=== PATIENT | male | born 1955 | race Caucasian/White ===

== ENCOUNTER 2017-12-14 17:40 | Emergency (ER) | payer MEDICARE, OTHER ==
[2017-12-14] MEDS: NS 1,000 ML IV (17:55)
[2017-12-14] MEDS: ASPIRIN 81 MG CHEW TABLET PO (18:00)
[2017-12-14] MEDS: GI COCKTAIL 50ML BTL(HYOSCYAMINE/MAALOX/LIDOCAINE VISCOUS)(1:3:1) PO (18:33)
[2017-12-14 18:50] LABS: BASO % 0.1 % (0.0-1.0); EOS % 0.5 % (0.0-3.0); IMMATURE GRANULOCYTE % 0.2 % (0-3.0); LYMPH % 11.8 % (24.0-44.0); MEAN CORPUSCULAR HEMOGLOBIN 30.4 pg (27.0-33.0); MEAN CORPUSCULAR HGB CONC 32.6 g/dl (32.0-36.5); MEAN CORPUSCULAR VOLUME 93.5 fl (80.0-96.0); MONO # 0.7 10^3/uL (0.0-0.8); MONO % 8.9 % (0.0-5.0); NEUTROPHILS # 6.4 10^3/uL (1.8-7.7); NEUTROPHILS % 78.5 % (36.0-66.0); PLATELET COUNT, AUTOMATED 184 10^3/uL (150-450); RED CELL DISTRIBUTION WIDTH 13.2 % (11.5-14.5); WHITE BLOOD COUNT 8.2 10^3/uL (4.0-10.0)
[2017-12-14 19:03] LABS: INR 0.99; PROTHROMBIN TIME 13.2 SECONDS (12.1-14.4)
[2017-12-14 19:19] LABS: ALBUMIN 3.8 GM/DL (3.2-5.2); ALBUMIN/GLOBULIN RATIO 1.15 (1.00-1.93); ALKALINE PHOSPHATASE 76 U/L (45-117); ALT/SGPT 20 U/L (12-78); ANION GAP 7 MEQ/L (8-16); AST/SGOT 22 U/L (7-37); BILIRUBIN,DIRECT 0.1 MG/DL (0.0-0.2); BILIRUBIN,TOTAL 0.5 MG/DL (0.2-1.0); BLOOD UREA NITROGEN 16 MG/DL (7-18); CALCIUM LEVEL 8.5 MG/DL (8.8-10.2); CARBON DIOXIDE LEVEL 29 MEQ/L (21-32); CHLORIDE LEVEL 105 MEQ/L (98-107); CK-MB VALUE MASS 2.4 NG/ML (<3.6); CPK CREATINE PHOSPHOKINASE 271 U/L (39-308); CREATININE FOR GFR 1.06 MG/DL (0.70-1.30); GLOMERULAR FILTRATION RATE > 60.0 (>49); GLUCOSE, FASTING 91 MG/DL (70-100); LIPASE 105 U/L (73-393); MB/CK RELATIVE INDEX 0.88 (< OR =4); NT-PRO BNP 209 PG/ML (<125); POTASSIUM SERUM 4.3 MEQ/L (3.5-5.1); SODIUM LEVEL 141 MEQ/L (136-145); TOTAL PROTEIN 7.1 GM/DL (6.4-8.2); TROPONIN I < 0.02 NG/ML (< 0.10)
[2017-12-14 23:37] LABS: CK-MB VALUE MASS 2.2 NG/ML (<3.6); CPK CREATINE PHOSPHOKINASE 231 U/L (39-308); MB/CK RELATIVE INDEX 0.95 (< OR =4); TROPONIN I < 0.02 NG/ML (< 0.10)
== END 2017-12-15 00:07 | disposition home or self-care (01) ==
LOC: M ED 12-15 00:07
DX: R07.89 Other chest pain (principal); R00.1 Bradycardia, unspecified; E78.5 Hyperlipidemia, unspecified; N18.9 Chronic kidney disease, unspecified; R06.02 Shortness of breath; Z87.891 Personal history of nicotine dependence; Z82.49 Family history of ischemic heart disease and other diseases of the circulatory system; Z79.899 Other long term (current) drug therapy; Z88.6 Allergy status to analgesic agent; Z88.8 Allergy status to other drugs, medicaments and biological substances
CPT/HCPCS: 71046

== ENCOUNTER 2018-02-25 11:23 | Emergency (ER) | payer MEDICARE ==
[2018-02-25] MEDS: NS 1,000 ML IV (12:50)
[2018-02-25] MEDS: MORPHINE 4 MG/ML 1ML VIAL/SYRINGE (J2270) IV ×2 (12:51→13:43)
[2018-02-25 12:52] LABS: BASO % 0.2 % (0.0-1.0); EOS % 0.1 % (0.0-3.0); HEMATOCRIT 40.9 % (42.0-52.0); HEMOGLOBIN 13.1 g/dl (13.5-17.5); IMMATURE GRANULOCYTE % 0.7 % (0-3.0); LYMPH # 0.6 10^3/uL (1.5-4.5); LYMPH % 4.3 % (24.0-44.0); MEAN CORPUSCULAR HEMOGLOBIN 29.6 pg (27.0-33.0); MEAN CORPUSCULAR VOLUME 92.3 fl (80.0-96.0); MONO # 0.7 10^3/uL (0.0-0.8); MONO % 5.4 % (0.0-5.0); NEUTROPHILS # 12.2 10^3/uL (1.8-7.7); NEUTROPHILS % 89.3 % (36.0-66.0); PLATELET COUNT, AUTOMATED 432 10^3/uL (150-450); RED BLOOD COUNT 4.43 10^6/uL (4.30-6.10); RED CELL DISTRIBUTION WIDTH 13.3 % (11.5-14.5); WHITE BLOOD COUNT 13.6 10^3/uL (4.0-10.0)
[2018-02-25] MEDS: ONDANSETRON 4MG/2ML VIAL (J2405) IV ×2 (12:52→15:02)
[2018-02-25 13:22] LABS: ALBUMIN 3.8 GM/DL (3.2-5.2); ALBUMIN/GLOBULIN RATIO 1.19 (1.00-1.93); ALKALINE PHOSPHATASE 117 U/L (45-117); ALT/SGPT 44 U/L (12-78); ANION GAP 8 MEQ/L (8-16); AST/SGOT 36 U/L (7-37); BILIRUBIN,DIRECT 0.1 MG/DL (0.0-0.2); BILIRUBIN,TOTAL 0.5 MG/DL (0.2-1.0); BLOOD UREA NITROGEN 13 MG/DL (7-18); CALCIUM LEVEL 9.4 MG/DL (8.8-10.2); CARBON DIOXIDE LEVEL 28 MEQ/L (21-32); CHLORIDE LEVEL 103 MEQ/L (98-107); CREATININE FOR GFR 0.89 MG/DL (0.70-1.30); GLOMERULAR FILTRATION RATE > 60.0 (>49); GLUCOSE, FASTING 140 MG/DL (70-100); LIPASE 80 U/L (73-393); POTASSIUM SERUM 4.1 MEQ/L (3.5-5.1); SODIUM LEVEL 139 MEQ/L (136-145)
[2018-02-25 14:06] LABS: KETONE, URINE AUTO RFX NEGATIVE (NEGATIVE); LEUKOCYTE ESTERASE UR AUTO RFX NEGATIVE (NEGATIVE); MUCUS, URINE RFX SMALL (NEGATIVE); NITRITE, URINE AUTO RFX NEGATIVE (NEGATIVE); RBC, URINE AUTO RFX 12 /HPF (0-3); SPECIFIC GRAVITY UR AUTO RFX 1.017 (1.002-1.035); SQUAM EPITHELIAL CELL UR AURFX 0 /HPF (0-6); WBC, URINE AUTO RFX 2 /HPF (0-3)
[2018-02-25] MEDS: GASTROGRAFIN SOLUTION 30ML PO ×2 (14:07→14:56)
[2018-02-25 14:13] LABS: INR 1.02; PROTHROMBIN TIME 13.5 SECONDS (12.1-14.4)
[2018-02-25 14:14] LABS: PARTIAL THROMBOPLASTIN TIME 25.8 SECONDS (25.4-37.6)
[2018-02-25] MEDS ORDERED: ISOVUE-370 76% 100ML VIAL (Q9967) As Ordered (15:01)
[2018-02-25] MEDS ORDERED: MORPHINE 10 MG/ML 1ML VIAL (J2270) IM (16:15)
[2018-02-25] MEDS: HYDROMORPHONE HCL 0.5 MG/ 0.5 ML SYRINGE (J1170 PER 1) IV (16:30)
[2018-02-25] MEDS: cefTRIAXone SOD 1 GM in D5W MINI-BAG PLUS 50 ML IV (16:58)
== END 2018-02-25 18:24 | disposition short-term general hospital (02) ==
LOC: M ED 11:23
DX: R10.9 Unspecified abdominal pain (principal); K83.8 Other specified diseases of biliary tract; Z98.890 Other specified postprocedural states; M54.5 Low back pain; N40.0 Benign prostatic hyperplasia without lower urinary tract symptoms; K21.9 Gastro-esophageal reflux disease without esophagitis; Z87.19 Personal history of other diseases of the digestive system; E78.5 Hyperlipidemia, unspecified; Z87.891 Personal history of nicotine dependence; Z88.8 Allergy status to other drugs, medicaments and biological substances; Z88.6 Allergy status to analgesic agent; Z90.49 Acquired absence of other specified parts of digestive tract; Z79.899 Other long term (current) drug therapy
CPT/HCPCS: J2270

== ENCOUNTER 2019-08-20 17:07 | Inpatient (IN) | payer MEDICARE ==
[~2019-08-20] VITALS: Ht 172.7 cm; Wt 81.8 kg
[~2019-08-20 17:07] MED LIST: ATEN25TA OR; ESCI10TA2 PO; FLOM0.4C39 PO; NEXI1CAP3 OR; PANT40TA3 PO; REQU1TAB16 OR; RYZOLT PO; SIMV20TA2 OR; SIMV20TA22 PO; VICODINES TAB PO; VITA100054 PO; ZANA4CAP OR
--- NOTE | 2019-08-20 19:13 | IPNPDOC ---
Text Note Date of Service The patient was seen on 08/20/19. NOTE Time of Service 735pm Mr. Ayala is a 64-year-old with a history of depression, nephrolithiasis, diverticulitis /diverticulosis, cholecystectomy and bile duct resection who is admitted for evaluation of nausea, vomiting and abdominal pain. Per discussion with BRICE Liu. He was seen by Dr. Chan who felt that the patient doesn't need surgery but will continue to follow the patient. 1. Nausea vomiting and abdominal pain of unclear cause - admit to medical floor/general surgery consult/Zofran when necessary / advance to clear liquid diet 2. Hypokalemia, likely due to vomiting - replete potassium and follow-up magnesium Rest per 's H&P VS,Federicoe, I+O VS, Sunil, I+O Vital Signs Date Time Temp Pulse Resp B/P (MAP) Pulse Ox O2 Delivery O2 Flow Rate FiO2 08/20/19 17:22 97.9 90 18 114/87 (96) 93 Room Air JULIAN STREETER MD August 20, 2019 19:13
[2019-08-20] MEDS ORDERED: VITAD1000T PO (19:30)
[2019-08-20] MEDS ORDERED: OXYC20TA2 PO (19:30)
[2019-08-20] MEDS ORDERED: MORPHINE 2 MG/ML 1ML VIAL (J2270) IV PRN (19:30)
[2019-08-20] MEDS ORDERED: PANTOPRAZOLE 40MG VIAL (C9113 PER 1) IV SCH (19:30)
[2019-08-20] MEDS ORDERED: ACETAMINOPHEN TAB 650MG DOSE (2X325MG) PO PRN (19:30)
[2019-08-20] MEDS ORDERED: BUSP1TAB PO (19:30)
[2019-08-20 20:00] LABS: BASO % 0.1 % (0.0-1.0); EOS % 0.1 % (0.0-3.0); HEMATOCRIT 44.9 % (42.0-52.0); HEMOGLOBIN 14.8 g/dl (13.5-17.5); LYMPH # 0.8 10^3/uL (1.5-5.0); LYMPH % 10.3 % (24.0-44.0); MEAN CORPUSCULAR VOLUME 90.9 fl (80.0-96.0); MONO # 0.5 10^3/uL (0.0-0.8); MONO % 6.6 % (0.0-5.0); NEUTROPHILS # 6.6 10^3/uL (1.5-8.5); NEUTROPHILS % 82.5 % (36.0-66.0); PLATELET COUNT, AUTOMATED 213 10^3/uL (150-450); RED BLOOD COUNT 4.94 10^6/uL (4.30-6.10)
[2019-08-20] MEDS ORDERED: ONDANSETRON 4MG/2ML VIAL IV PRN (20:00)
[2019-08-20 20:14] LABS: INR 1.07; PROTHROMBIN TIME 13.6 SECONDS (11.8-14.0)
--- NOTE | 2019-08-20 20:16 | REP ---
Clinical: Abdominal pain. Possible small bowel obstruction. Technique: Two supine views of the abdomen and pelvis. Findings: Bowel gas pattern is nonspecific and without definite evidence for obstruction. No obvious perforation. No foreign body. Skeletal structures are intact. Impression: Nonspecific bowel gas pattern. Electronically Signed by Juve Badillo MD 08/20/2019 08:06 P
[2019-08-20 20:20] LABS: ALBUMIN 3.9 GM/DL (3.2-5.2); ALT/SGPT 38 U/L (12-78); BILIRUBIN,TOTAL 1.1 MG/DL (0.2-1.0); BLOOD UREA NITROGEN 20 MG/DL (7-18); CALCIUM LEVEL 8.5 MG/DL (8.8-10.2); CARBON DIOXIDE LEVEL 27 MEQ/L (21-32); CHLORIDE LEVEL 104 MEQ/L (98-107); CREATININE FOR GFR 0.96 MG/DL (0.70-1.30); GLOMERULAR FILTRATION RATE > 60.0 (>49); GLUCOSE, FASTING 93 MG/DL (70-100); POTASSIUM SERUM 3.3 MEQ/L (3.5-5.1); SODIUM LEVEL 139 MEQ/L (136-145)
[2019-08-20 20:22] LABS: CK-MB VALUE MASS 4.3 NG/ML (<3.6); MB/CK RELATIVE INDEX 1.09 (< OR =4); TROPONIN I 0.03 NG/ML (< 0.10)
[2019-08-20] MEDS: LR 1,000 ML IV SCH (20:36)
[2019-08-20] MEDS ORDERED: KCL 10MEQ/100ML SWI (KRUN) 10 MEQ in IV 1 EA IV SCH (21:00)
[2019-08-20 22:00] VITALS: BP 151/95
[2019-08-20] MEDS ORDERED: POTASSIUM CHLORIDE 10 MEQ SR TABLET PO ONE (22:45)
[2019-08-20] MEDS: SIMVASTATIN 20 MG TAB PO SCH (23:07)
--- NOTE | 2019-08-20 23:09 | HPEPDOC ---
General Date of Admission August 20, 2019 at 19:10 Date of Service: August 20, 2019 Other Providers PCP: Delphine Sullivan Attending Physician: JULIAN STREETER MD Chief Complaint The patient is a 64-year-old male admitted with a reason for visit of Abdominal Pain. History of Present Illness HPI: This is a 64-year-old gentleman ED-ED transfer from [facility] for concern of small bowel obstruction. He had presented for worsening nausea vomiting over the past 3 days with decreased appetite and associated chills and abdominal dis comfort from dry heaving. Also noted stools are looser than usual in the past 3 days, but no true diarrhea. Denies any fever, sick contacts, travel, upper or lower blood loss. He believes it is related to him ordering fast food; coleslaw and [place] fried chicken earlier that day. He reports he is vomiting up all liquid intake and bile, and has no appetite for any solid food. At [facility], CT of abdomen and pelvis with IV contrast revealed postsurgical changes of bowel loops in the right upper quadrant with mucosal thickening the suture site and mild proximal small bowel obstruction at the suture site and noted pneumobilia. UA was negative, patient afebrile, normal WBC at 7, negative cardiac markers, lactic acid 2.2, down to 1.6 when rechecked on admission here. He had an NG tube placed at [facility], which was removed in our ER per surgeon Dr. Mathur recommendations. Surgery would like the patient admitted with medical management, no current plans for surgery, and will see the patient on consult. In the ER, since NG tube was removed, patient denies any continued nausea or vomiting, and is requesting to attempt liquids. Otherwise is hemodynamically stable and has no other complaints. PMH: Diverticulosis Dyslipidemia GERD BPH Depression/anxiety Past Surgical Hx: Cholecystectomy 2 years ago Appendectomy C-spine fusion Hip surgery Family Hx: Mother had cancer, unclear which kind Other relatives healthy Social Hx: Lives at home with , son and his girlfriend and 2 kids Disabled due to spinal issues. Used to work in construction Quit tobacco years ago Barely drinks alcohol. Denies illicit substances ROS: Constitutional: Denies fever, night sweats, weight loss. Admits chills HEENT: Denies headache, dysphagia, odynophagia, auditory or visual disturbances Skin: Denies any rashes or lesions Pulmonary: Denies dyspnea, cough, wheezing Cardiac: Denies chest pain, palpitations, orthopnea, PND, edema, lightheadedness GI: Denies constipation, melena, hematochezia, hematemesis. Admits decreased appetite, nausea and vomiting, abdominal discomfort from persistent vomiting. Admits loose stools, but denies diarrhea : Denies dysuria, hematuria, retention. Admits to enlarged prostate symptomatically controlled meds MSK: Denies new pains or weakness Neurologic: Denies new numbness/tingling PHYSICAL: General exam: A&O x3, NAD, resting comfortably HEENT: NCAT, EOMI, moist mucous membranes, neck supple without adenopathy Cardiac: RRR, normal S1 & S2, no murmurs Respiratory: CTAB, good air exchange, no w/r/r Abdomen: soft, NT, ND, hypoactive bowel sounds. No rebound guarding or rigidity. No palpable masses Extremity: 2+ radial and dorsalis pedis pulses, no edema or calf tenderness Skin: [place], warm, dry, no visible rash Msk: strength 5/5 x4, normal tone Neuro: normal speech, no focal deficits Psych: Normal mood and affect LABORATORY DATA, MICROBIOLOGY: Please see below. ASSESSMENT AND PLAN: This is a 64-year-old gentleman ED to ED transfer from [facility] for nausea and vomiting for the past 3 days with associated abdominal discomfort from vomiting. Denies any blood loss. Concern for possible small bowel obstruction and was transferred for surgical eval. Nausea, vomiting, abdominal discomfort Symptoms for the past 3 days after ordering [employer] and coleslaw Denies any fever or blood loss or any other systemic signs of infection Possible gastroenteritis vs gastritis vs GERD Initial CT of abdomen pelvis at [facility] concern for small bowel instruction NG tube inserted at [facility], was removed in our ER Patient is able to pass flatus and has had regular bowel movements General surgeon Dr. Chan would like the patient admitted and on consult. Appreciate input Patient requesting by mouth intake. Will monitor on clear liquids, pending Sx eval DC IV fluids if patient has good by mouth intake Hypokalemia Potassium 3.3 on admission. Likely 2/2 vomiting and decreased by mouth intake IV nothing by mouth supplemented. Recheck morning labs Dyslipidemia Continue home statin GERD Continue home PPI BPH Continue home Flomax Depression/anxiety Continue home BuSpar and Lexapro DVT prophylaxis: mechanical, encourage ambulation CODE STATUS: Discussed with patient in depth on admission. Patient will like more time to consider code status. In case he is unable to make decisions, he would like his Kassie to do so. DISPOSITION: admit to hospital. To be seen by General Surgery. Home Medications Scheduled Buspirone HCl (Buspirone HCl) 7.5 Mg Tablet, 7.5 MG PO DAILY, (Reported) Cholecalciferol (Vitamin D3) (Vitamin D3) 1,000 Unit Tablet, 2,000 UNITS PO DAILY, (Reported) Escitalopram Oxalate (Escitalopram Oxalate) 10 Mg Tab, 10 MG PO DAILY, (Reported) Finasteride (Finasteride) 5 Mg Tablet, 1 TAB PO DAILY, (Reported) Oxycodone Hcl (Oxycodone HCl) 20 Mg Tablet, 20 MG PO Q6H, (Reported) MDD 4 TABS Pantoprazole Sodium (Pantoprazole Sodium) 40 Mg Tab, 40 MG PO DAILY, (Reported) Simvastatin (Simvastatin) 20 Mg Tab, 20 MG PO QPM, (Reported) Tamsulosin HCl (Flomax) 0.4 Mg Cap, 0.4 MG PO DAILY, (Reported) Allergies Coded Allergies: ibuprofen (Verified Allergy, Intermediate, RASH, 08/22/19) cyclobenzaprine (Verified Adverse Reaction, Mild, NAUSEA, 08/22/19) A-FIB/CHADSVASC A-FIB History Current/History of A-Fib/PAF?: No Vital Signs Vital Signs Date Time Temp Pulse Resp B/P (MAP) Pulse Ox O2 Delivery O2 Flow Rate FiO2 08/20/19 22:08 16 08/20/19 20:35 98.6 87 136/92 (107) 96 Room Air Laboratory Data Labs 24H Laboratory Tests 2 08/20/19 17:32: Coronavirus (COVID-19)(PCR) NEGATIVE 08/20/19 19:44: Immature Granulocyte % (Auto) 0.4, Neutrophils (%) (Auto) 82.5H, Lymphocytes (%) (Auto) 10.3L, Monocytes (%) (Auto) 6.6H, Eosinophils (%) (Auto) 0.1, Basophils (%) (Auto) 0.1, Neutrophils # (Auto) 6.6, Lymphocytes # (Auto) 0.8L, Monocytes # (Auto) 0.5, Eosinophils # (Auto) 0.0, Basophils # (Auto) 0.0, Nucleated Red Blood Cells % (auto) 0.0, Prothrombin Time 13.6, Prothromb Time International Ratio 1.07, Anion Gap 8, Glomerular Filtration Rate > 60.0, Lactic Acid Level 1.6, Calcium Level 8.5L, Phosphorus Level 4.0, Magnesium Level 2.0, Total Bilirubin 1.1H, Aspartate Amino Transf (AST/SGOT) 34, Alanine Aminotransferase (ALT/SGPT) 38, Alkaline Phosphatase 152H, Total Creatine Kinase 396H, Creatine Kinase MB 4.3H, Creatine Kinase MB Relative Index 1.09, Troponin I 0.03, Total Protein 7.0, Albumin 3.9, Albumin/Globulin Ratio 1.26 CBC/BMP Laboratory Tests 08/20/19 19:44 Microbiology Microbiology 08/20/19 Blood Culture, Received Pending 08/20/19 Blood Culture, Received Pending Plan / VTE VTE Prophylaxis Ordered?: Yes GME ATTESTATION GME ATTESTATION My faculty preceptor for this patient encounter was physically present during the encounter and was fully available. All aspects of the patient interview, examination, medical decision making process, and medical care plan development were reviewed and approved by the faculty preceptor. The faculty preceptor is aware and concurs with the plan as stated in the body of this note and will attest to such by his/her cosignature. ATTENDING NOTE I agree with the findings as documented by . Please my addendum dated for additional details. OCHOA MARQUEZ DO August 20, 2019 23:[address] MD August 23, 2019 06:25
[2019-08-20] MEDS ORDERED: PILL CUTTER 1 EACH XX PRN (23:15)
[2019-08-21] MEDS: oxyCODONE 5MG TAB PO SCH ×4 (00:36→18:03)
[2019-08-21] MEDS: LR 1,000 ML IV SCH ×2 (05:08→15:30)
[2019-08-21 06:00] VITALS: BP 130/71
[2019-08-21 06:44] LABS: HEMATOCRIT 37.7 % (42.0-52.0); MEAN CORPUSCULAR HGB CONC 32.9 g/dl (32.0-36.5); MEAN CORPUSCULAR VOLUME 91.1 fl (80.0-96.0); PLATELET COUNT, AUTOMATED 170 10^3/uL (150-450); RED BLOOD COUNT 4.14 10^6/uL (4.30-6.10); WHITE BLOOD COUNT 6.8 10^3/uL (4.0-10.0)
[2019-08-21 06:59] LABS: HEMOGLOBIN 12.4 g/dl (13.5-17.5)
[2019-08-21 07:05] LABS: ALT/SGPT 31 U/L (12-78); BILIRUBIN,TOTAL 1.3 MG/DL (0.2-1.0); BLOOD UREA NITROGEN 17 MG/DL (7-18); CALCIUM LEVEL 7.9 MG/DL (8.8-10.2); CARBON DIOXIDE LEVEL 30 MEQ/L (21-32); CHLORIDE LEVEL 105 MEQ/L (98-107); CREATININE FOR GFR 0.94 MG/DL (0.70-1.30); GLOMERULAR FILTRATION RATE > 60.0 (>49); GLUCOSE, FASTING 76 MG/DL (70-100); POTASSIUM SERUM 3.1 MEQ/L (3.5-5.1); SODIUM LEVEL 142 MEQ/L (136-145); TOTAL PROTEIN 5.9 GM/DL (6.4-8.2)
[2019-08-21] MEDS: KCL 10MEQ/100ML SWI (KRUN) 10 MEQ in IV 1 EA IV SCH ×2 (09:47→10:00)
[2019-08-21] MEDS: busPIRone 5 MG TAB PO SCH (09:54)
[2019-08-21] MEDS: TAMSULOSIN 0.4 MG CAP PO SCH (09:55)
[2019-08-21] MEDS: PANTOPRAZOLE 40MG TAB (PROTONIX) PO SCH (09:55)
[2019-08-21] MEDS: ESCITALOPRAM OXALATE 10 MG TAB (LEXAPRO) PO SCH (09:55)
[2019-08-21] MEDS: VITAMIN D 1,000 INTERNATIONAL UNITS TABLET PO SCH (09:55)
--- NOTE | 2019-08-21 12:06 | IPNPDOC ---
Subjective Date Seen The patient was seen on 08/21/19. Subjective Chief Complaint/HPI Patient is feeling better. No more abdominal pain, tolerating clear liquid diet and wants to go home, awaiting surgical follow-up today General: Denies: ROS Unobtainable, Chills, Night Sweats, Fatigue, Malaise, Normal Appetite, Other Symptoms Constitutional: Denies: Chills, Fever, Malaise, Night Sweats, Weakness, Fatigue, Weight Loss, Lethargy, Other Pulmonary: Denies: Dyspnea, Cough, Pleuritic Chest Pain, Other Symptoms Cardiovascular: Denies: Chest Pain, Palpitations, Orthopnea, Paroxysmal Noc. Dyspnea, Edema, Lt Headedness, Other Symptoms Gastrointestinal: Denies: Nausea, Vomiting, Abdominal Pain, Diarrhea, Constipation, Melena, Hematochezia, Other Symptoms Endocrine: Denies: Polydipsia, Polyphagia, Polyuria, Heat Intolerance, Cold Intolerance, Other Endocrine Sx Musculoskeletal: Denies: Neck Pain, Back Pain, Shoulder Pain, Arm Pain, Hand Pain, Leg Pain, Foot Pain, Joint Pain, Muscle Pain, Spasms, Other Symptoms Neurological: Denies: Weakness, Numbness, Incoordination, Change in speech, Confusion, Seizures, Other Symptoms Objective Physical Examination General Exam: Positive: Alert, Cooperative Eye Exam: Positive: PERRLA, Conjunctiva & lids normal ENT Exam: Positive: Atraumatic Neck Exam: Positive: Supple Chest Exam: Positive: Clear to auscultation, Normal air movement Heart Exam: Positive: Rate Normal, Normal S1, Normal S2 Abdomen Exam: Positive: Normal bowel sounds, Soft, Tenderness (. No tenderness) Extremity Exam: Positive: Normal pulses Neuro Exam: Positive: Strength at 5/5 X4 ext Assessment /Plan Problems (1) Abdominal pain Status: Acute Problem Text: Ileus versus SBO Without SBO as patient is tolerating oral feeding including clear liquid, very well, he had a large BM this morning, he has no abdominal pain and wishes to go home Most likely ileus in nature, which is resolving Surgical follow-up is pending will advance diet till patient can tolerated regular diet Abdominal x-ray 2 views in a.m. CBC, CMP in a.m. DC IV fluids. Once he is eating regular diet Patient is able to tolerate his regular diet and has no more abdominal pain. Her clinical symptoms that he can be discharged home tomorrow (2) Chronic GERD Status: Chronic Problem Text: Continue home meds (3) Dyslipidemia Status: Chronic Problem Text: Continue home meds (4) Hypokalemia Status: Acute Problem Text: Potassium supplement ordered. He is refusing IV administration of KCl and he was given a by mouth dose this morning Will repeat potassium level at 5 PM and give one more by mouth dose if needed Plan/VTE VTE Prophylaxis Ordered?: Yes VS, I&O, 24H, Fishbone Vital Signs/I&O Vital Signs Date Time Temp Pulse Resp B/P (MAP) Pulse Ox O2 Delivery O2 Flow Rate FiO2 08/21/19 06:00 98.7 64 18 130/71 (90) 94 Room Air I&O- Last 24 Hours up to 6 AM 08/21/19 06:00 Intake Total 2160 ml Output Total 300 ml Balance 1860 ml Laboratory Data 24H LABS Laboratory Tests 2 08/20/19 17:32: Coronavirus (COVID-19)(PCR) NEGATIVE 08/20/19 19:44: Immature Granulocyte % (Auto) 0.4, Neutrophils (%) (Auto) 82.5H, Lymphocytes (%) (Auto) 10.3L, Monocytes (%) (Auto) 6.6H, Eosinophils (%) (Auto) 0.1, Basophils (%) (Auto) 0.1, Neutrophils # (Auto) 6.6, Lymphocytes # (Auto) 0.8L, Monocytes # (Auto) 0.5, Eosinophils # (Auto) 0.0, Basophils # (Auto) 0.0, Nucleated Red Blood Cells % (auto) 0.0, Prothrombin Time 13.6, Prothromb Time International Ratio 1.07, Anion Gap 8, Glomerular Filtration Rate > 60.0, Lactic Acid Level 1.6, Calcium Level 8.5L, Phosphorus Level 4.0, Magnesium Level 2.0, Total Bilirubin 1.1H, Aspartate Amino Transf (AST/SGOT) 34, Alanine Aminotransferase (ALT/SGPT) 38, Alkaline Phosphatase 152H, Total Creatine Kinase 396H, Creatine Kinase MB 4.3H, Creatine Kinase MB Relative Index 1.09, Troponin I 0.03, Total Protein 7.0, Albumin 3.9, Albumin/Globulin Ratio 1.26 08/21/19 06:06: Nucleated Red Blood Cells % (auto) 0.0, Anion Gap 7L, Glomerular Filtration Rate > 60.0, Calcium Level 7.9L, Total Bilirubin 1.3H, Aspartate Amino Transf (AST/SGOT) 26, Alanine Aminotransferase (ALT/SGPT) 31, Alkaline Phosphatase 118H, Total Protein 5.9L, Albumin 3.0#L, Albumin/Globulin Ratio 1.03 CBC/BMP Laboratory Tests 08/20/19 19:44 08/21/19 06:06 Microbiology Microbiology 08/20/19 Blood Culture, Received Pending 08/20/19 Blood Culture, Received Pending LEXY LINDSAY MD August 21, 2019 12:06
[2019-08-21] MEDS: SIMVASTATIN 20 MG TAB PO SCH (20:41)
[2019-08-22] MEDS: oxyCODONE 5MG TAB PO SCH ×2 (00:17→05:43)
[2019-08-22 04:00] VITALS: BP 120/84
[2019-08-22 06:00] VITALS: BP 120/78
[2019-08-22 07:22] LABS: BASO % 0.4 % (0.0-1.0); EOS # 0.1 10^3/uL (0.0-0.5); HEMATOCRIT 39.7 % (42.0-52.0); HEMOGLOBIN 12.8 g/dl (13.5-17.5); LYMPH # 1.6 10^3/uL (1.5-5.0); LYMPH % 32.5 % (24.0-44.0); MEAN CORPUSCULAR HEMOGLOBIN 29.2 pg (27.0-33.0); MEAN CORPUSCULAR HGB CONC 32.2 g/dl (32.0-36.5); MEAN CORPUSCULAR VOLUME 90.6 fl (80.0-96.0); MONO # 0.6 10^3/uL (0.0-0.8); MONO % 11.2 % (0.0-5.0); NEUTROPHILS # 2.7 10^3/uL (1.5-8.5); NEUTROPHILS % 54.5 % (36.0-66.0); PLATELET COUNT, AUTOMATED 175 10^3/uL (150-450); RED BLOOD COUNT 4.38 10^6/uL (4.30-6.10); WHITE BLOOD COUNT 4.9 10^3/uL (4.0-10.0)
[2019-08-22 08:01] LABS: BLOOD UREA NITROGEN 11 MG/DL (7-18); CREATININE FOR GFR 0.86 MG/DL (0.70-1.30); GLOMERULAR FILTRATION RATE > 60.0 (>49); GLUCOSE, FASTING 79 MG/DL (70-100); SODIUM LEVEL 142 MEQ/L (136-145)
[2019-08-22 08:02] LABS: CALCIUM LEVEL 8.2 MG/DL (8.8-10.2); CARBON DIOXIDE LEVEL 31 MEQ/L (21-32); CHLORIDE LEVEL 106 MEQ/L (98-107); FERRITIN 79 NG/ML (26-388); IRON (FE) 52 UG/DL (65-175); PERCENT SATURATION 23.7 % (19.7-50.0); POTASSIUM SERUM 3.2 MEQ/L (3.5-5.1); TOTAL IRON BINDING CAPACITY 219 UG/DL (250-450)
--- NOTE | 2019-08-22 08:14 | REP ---
Clinical: Possible small bowel obstruction. Technique: Supine and upright views of the abdomen and pelvis. Findings: Bowel gas pattern demonstrates mildly prominent air filled loops of both small and large bowel with evidence for prior bowel surgery in the right mid abdomen and prior cholecystectomy. Findings may represent early ileus and less likely partial small bowel obstruction. Correlation is required. No obvious free air to suggest perforation. No organomegaly. No significant foreign body. Skeletal structures are intact. Impression: Bowel gas pattern as described above is relatively nonspecific. Enteritis, ileus and less likely early/partial small bowel obstruction cannot be excluded. Electronically Signed by Juve Badillo MD 08/22/2019 08:06 A
[2019-08-22] MEDS: TAMSULOSIN 0.4 MG CAP PO SCH (09:41)
[2019-08-22] MEDS: ESCITALOPRAM OXALATE 10 MG TAB (LEXAPRO) PO SCH (09:41)
[2019-08-22] MEDS: busPIRone 5 MG TAB PO SCH (09:41)
[2019-08-22] MEDS: PANTOPRAZOLE 40MG TAB (PROTONIX) PO SCH (09:41)
[2019-08-22] MEDS: VITAMIN D 1,000 INTERNATIONAL UNITS TABLET PO SCH (09:41)
[2019-08-22] MEDS ORDERED: FINA5TAB2 PO (09:51)
[2019-08-22] MEDS ORDERED: POTASSIUM CHLORIDE 10 MEQ SR TABLET PO ONE (10:30)
--- NOTE | 2019-08-22 10:37 | IPN ---
DATE: 08/21/2019 The patient overall has been relatively stable overnight. He states that he is actually feeling good. He had some liquids and did tolerate these very nicely. He has had no fevers or chills, and overall his crampy abdominal pain is completely resolved at this time. On his physical exam, his abdomen is soft, nontender, nondistended. IMPRESSION/PLAN: The patient has resolution of his partial obstructive symptoms and I do feel progressing his diet and having him followup as an outpatient is reasonable. Once again, I anticipate he will need to see GI at some point in the future to see if they can evaluate that jejunal anastomosis, and in the meantime can followup in my office in a couple weeks for reevaluation and I may try him on some Actigall to see how he does with the recurrence of these pains and there is no evidence of elevated liver function test, no evidence of ascending cholangitis, etc. at this time and thus, I feel it is reasonable to have him stabilized from a medical standpoint when that is present and discharge as per deemed reasonable.
--- NOTE | 2019-08-22 10:47 | CR ---
DATE OF CONSULTATION: 08/20/2019 The patient is here after being seen in the emergency department at [facility] for a question of small bowel obstruction. Although when the patient discusses his problem, he has had some chronic issues over many years with a several-day history of crampy abdominal pain, nausea, vomiting where he goes to the emergency room, gets some fluids, and then is discharged home. This started out in much the same manner, and he had decreased appetite, crampy abdominal pain with dry heaves. He has also had some soft stools but really no other complaints. He has had an interesting history where he has had a cholecystectomy in the past; and with the cholecystectomy, it sounds as though he had a common bile duct injury and had a Yoselin Y repair/diversion of this. In any case, presented to the hospital for additional recommendations as a transfer from the emergency room (ER) from [facility]. He has had no fevers or chills. His past medical history is significant for history of cholecystectomy, appendectomy, cervical fusion, hip surgery, diverticulosis, dyslipidemia, gastroesophageal reflux disease (GERD), benign prostatic hypertrophy (BPH), depression, anxiety. MEDICATIONS: Include buspirone, vitamin D, escitalopram, oxycodone, pantoprazole, simvastatin, Flomax. PHYSICAL EXAMINATION: Reveals an anxious-appearing 64-year-old male who looks stated age. HEENT is unremarkable. Lungs are clear anteriorly. Heart is regular. Abdomen is soft, nondistended. Mildly uncomfortable with palpation but no significant guarding, rebound, or peritoneal signs are appreciated. Extremities: Warm, well perfused. IMPRESSION AND PLAN: The patient has a nasogastric (NG) tube on transfer when he was transferred from [facility]; and when I review of the x-rays, I am not convinced that he has truly an obstruction or partial obstruction, although I do agree that there is some minimal thickening at a previous jejunojejunal anastomosis; and I am wondering if he has some gastrointestinal (GI) complaints that are associated with the emptying of his biliary tract through this jejunal limb. In any case, it is reasonable to discontinue his NG tube at this time, keep him nothing by mouth overnight, probably start him on clear liquids tomorrow morning; and if he tolerates that, he can be discharged to home when medically stable; but otherwise, I anticipate that this jejunojejunal anastomosis may need to be evaluated by GI at some point in the future. Also, if there are some problems with bile emptying, he may benefit from some Actigall/ursodiol in the future as an alternative; but in any case at this point and his current issue being partial obstruction/crampy abdominal pain, nausea, vomiting, I do feel that we will see how he does over the ensuing 12 hours and then reevaluate tomorrow morning.
--- NOTE | 2019-08-22 21:29 | DSES ---
DATE OF ADMISSION: 08/20/2019 DATE OF DISCHARGE: 08/22/2019 PRINCIPAL DIAGNOSIS: Abdominal pain, unknown etiology. PRIMARY CARE PROVIDER: Hilda Sullivan in [place], [place] SECONDARY DIAGNOSES: 1. Gastroesophageal reflux disease. 2. Hyperlipidemia. 3. Hypokalemia. HISTORY: Patient is a 64-year-old male with abdominal pain. See details of history and physical for admission. HOSPITAL COURSE: Admitted to medical bed. I assumed his care on the day of his discharge. It looks as though he was just treated with intravenous (IV) fluids and analgesics. He has not required any pain medications for 2 days. Abdominal pain resolved spontaneously. He had normal bowel movement today. Has no nausea or vomiting and wants to go home. PHYSICAL EXAMINATION: 120/78, afebrile. LUNGS: Clear. HEART: Regular rate and rhythm. ABDOMEN: Soft, nontender. No masses. No costovertebral angle (CVA) tenderness. LABORATORY DATA: Sodium 142, potassium 3.2, BUN 11, creatinine 0.8, glucose 79. White count 4.9, hemoglobin 12.8, platelets 175. COVID testing was negative. Blood cultures were negative. Abdominal x-rays were unrevealing. Ileus pattern suspected. DISPOSITION: Patient is discharged home in improved and stable condition. Followup with his primary care provider in a week. His activity is as tolerated, and diet is as tolerated. He was given some supplemental potassium before discharge. DISCHARGE MEDICATIONS: Unchanged from admission. - BuSpar 7.5 mg daily - vitamin D as needed - escitalopram 10 mg daily - finasteride 5 mg daily - oxycodone 20 mg every 6 hours, maximum daily dose 4 (no new prescription for this provided opiate therapy per primary care provider) - Protonix 40 mg daily - simvastatin 20 mg daily - tamsulosin 0.4 mg daily Followup with primary care provider in a week.
== END 2019-08-22 12:25 | disposition home or self-care (01) | DRG 392 ==
LOC: M ED 17:07 → M ED INP 19:10 → M MSPAV 20:41
PROVIDERS: ADMIT Internal Medicine; ATTEND Family Medicine
DX: R10.9 Unspecified abdominal pain (principal); K56.7 Ileus, unspecified; E87.6 Hypokalemia; E78.5 Hyperlipidemia, unspecified; K21.9 Gastro-esophageal reflux disease without esophagitis; N40.0 Benign prostatic hyperplasia without lower urinary tract symptoms; R11.2 Nausea with vomiting, unspecified; F32.9 Major depressive disorder, single episode, unspecified; F41.9 Anxiety disorder, unspecified; Z88.6 Allergy status to analgesic agent; Z88.8 Allergy status to other drugs, medicaments and biological substances; Z79.891 Long term (current) use of opiate analgesic; Z79.899 Other long term (current) drug therapy; K57.90 Diverticulosis of intestine, part unspecified, without perforation or abscess without bleeding; Z90.49 Acquired absence of other specified parts of digestive tract; Z98.1 Arthrodesis status; Z87.891 Personal history of nicotine dependence; Z98.0 Intestinal bypass and anastomosis status

== ENCOUNTER 2024-12-01 07:34 | Day surgery (SDC) | payer MEDICARE ==
[~2024-12-01] VITALS: Ht 170.2 cm; Wt 80.1 kg
[~2024-12-01 07:34] MED LIST changes: +ALBU8.5H; +ALLO100T PO; +BUPR1SUB5 PO; +BUSP1TAB PO; +CYCLOPENTOLATE 1% OPHTH SOLN 2 ML BTL OD SCH; +ESCI10TA16 PO; -ESCI10TA2 PO; +FINA5TAB2 PO; -FLOM0.4C39 PO; +LEXA1TAB PO; +LIDOCAINE 3.5% 1 ML OPHTH TOPICAL GEL OU ONE; +MIDAZOLAM INJ 2 MG/2 ML VIAL As Ordered ONE; +OFLOXACIN 0.3 % (OCUFLOX) OPTH SOL 5ML OD ONE; +OXYC10TA12 PO; +OXYC20TA2 PO; +PANT40TA29 PO; -PANT40TA3 PO; +PHENYLEPHRINE 10% OPHTH SOL 5ML OD PRN; +PHENYLEPHRINE 2.5% OPHTH SOL 2ML OD SCH; +TAMS-18 PO; +TROPICAMIDE 1% OPHTH SOLN 15ML OD SCH; +VITA100093 PO
[2024-12-01] MEDS: LIDOCAINE 1% SDV 5 ML VIAL As Ordered ONE (09:00)
[2024-12-01] MEDS: BSS IRRIG/VANCO(10MG)/TOBRA(5MG)/EPINEPH(1:1000-0.5CC)500ML BAG-ORONLY As Ordered ONE (09:01)
[2024-12-01] MEDS: CEFUROXIME 1 MG/0.1 ML INTRACAMERAL INJ As Ordered ONE (09:01)
[2024-12-01] MEDS: ACETYLCHOLINE OPHTH SOLN 1% 2ML As Ordered ONE (09:13)
[2024-12-01 09:15] VITALS: BP 118/68; TEMP 97.1; O2SAT 96
== END 2024-12-01 09:25 | disposition home or self-care (01) ==
LOC: M SDC 07:34
PROVIDERS: ATTEND Ophthalmology
DX: H25.11 Age-related nuclear cataract, right eye (principal); E78.00 Pure hypercholesterolemia, unspecified; N40.0 Benign prostatic hyperplasia without lower urinary tract symptoms; Z79.899 Other long term (current) drug therapy; Z90.49 Acquired absence of other specified parts of digestive tract; Z88.5 Allergy status to narcotic agent; Z88.6 Allergy status to analgesic agent; Z88.8 Allergy status to other drugs, medicaments and biological substances; F41.9 Anxiety disorder, unspecified; F32.A Depression, unspecified; K21.9 Gastro-esophageal reflux disease without esophagitis
CPT/HCPCS: 66984; J0697; J2250; J3010; V2632

== ENCOUNTER 2024-12-22 08:59 | Day surgery (SDC) | payer MEDICARE ==
[~2024-12-22] VITALS: Ht 167.6 cm; Wt 79.2 kg
[~2024-12-22 08:59] MED LIST changes: -ALBU8.5H; +ALBU8.5H INH; -CYCLOPENTOLATE 1% OPHTH SOLN 2 ML BTL OD SCH; -LIDOCAINE 3.5% 1 ML OPHTH TOPICAL GEL OU ONE; -MIDAZOLAM INJ 2 MG/2 ML VIAL As Ordered ONE; -OFLOXACIN 0.3 % (OCUFLOX) OPTH SOL 5ML OD ONE; -PHENYLEPHRINE 10% OPHTH SOL 5ML OD PRN; +PHENYLEPHRINE 10% OPHTH SOL 5ML OS PRN; -PHENYLEPHRINE 2.5% OPHTH SOL 2ML OD SCH; -TROPICAMIDE 1% OPHTH SOLN 15ML OD SCH
[2024-12-22] MEDS ORDERED: MIDAZOLAM INJ 2 MG/2 ML VIAL As Ordered ONE (09:51)
[2024-12-22] MEDS: PHENYLEPHRINE 2.5% OPHTH SOL 2ML OS SCH (10:29)
[2024-12-22] MEDS: OFLOXACIN 0.3 % (OCUFLOX) OPTH SOL 5ML OS ONE (10:29)
[2024-12-22] MEDS: TROPICAMIDE 1% OPHTH SOLN 15ML OS SCH (10:29)
[2024-12-22] MEDS: LIDOCAINE 3.5% 1 ML OPHTH TOPICAL GEL OU ONE (10:29)
[2024-12-22] MEDS: CYCLOPENTOLATE 1% OPHTH SOLN 2 ML BTL OS SCH (10:29)
[2024-12-22] MEDS: LIDOCAINE 1% SDV 5 ML VIAL As Ordered ONE (11:06)
[2024-12-22] MEDS: CEFUROXIME 1 MG/0.1 ML INTRACAMERAL INJ As Ordered ONE (11:08)
[2024-12-22] MEDS: BSS IRRIG/VANCO(10MG)/TOBRA(5MG)/EPINEPH(1:1000-0.5CC)500ML BAG-ORONLY As Ordered ONE (11:08)
[2024-12-22 11:20] VITALS: BP 115/74; TEMP 97.6; O2SAT 96
== END 2024-12-22 11:41 | disposition home or self-care (01) ==
LOC: M SDC 08:59
PROVIDERS: ATTEND Ophthalmology
DX: H25.12 Age-related nuclear cataract, left eye (principal); Z88.5 Allergy status to narcotic agent; Z88.6 Allergy status to analgesic agent; Z88.8 Allergy status to other drugs, medicaments and biological substances; Z79.899 Other long term (current) drug therapy; Z98.41 Cataract extraction status, right eye
CPT/HCPCS: 66984; J0697; J2250; J3010; V2632